=== PATIENT | female | born 1945 | race Caucasian/White ===

== ENCOUNTER 2021-05-08 11:24 | Day surgery (SDC) | payer OTHER ==
[2021-05-05 09:45] LABS: Absolute Lymphocytes (CBC) 1.1 K/uL (0.7-4.9); Hematocrit 33.9 % (36.0-45.0); Lymphocytes % 14.7 % (15.3-44.8); MPV 8.6 fL (7.6-11.3); RBC Red Blood Cell Count 4.04 M/uL (3.86-4.86)
[2021-05-05 09:52] LABS: Protime INR 1.05
[2021-05-05 09:53] LABS: BUN Blood Urea Nitrogen 15 mg/dL (7-18); Bicarbonate 31 mmol/L (21-32); Glucose Level 101 mg/dL (74-106); Potassium 3.7 mmol/L (3.5-5.1); Sodium Level 143 mmol/L (136-145)
[2021-05-08] MEDS ORDERED: NA CHLORIDE 0.9% 500 ML ONE (11:28)
[2021-05-08 11:52] VITALS: TEMP 97.1
[2021-05-08] MEDS ORDERED: VERAPAMIL HCL 10 MG/4 ML VIAL IV ONE (13:23)
[2021-05-08] MEDS ORDERED: CLOPIDOGREL 75 MG TABLET ONE (13:23)
[2021-05-08] MEDS ORDERED: MIDAZOLAM HCL 2 MG/2 ML INJ ONE (13:23)
[2021-05-08] MEDS ORDERED: HEPARIN 5000 UNIT/ML 1 ML VIAL ONE (13:23)
[2021-05-08] MEDS ORDERED: FENTANYL CITR 100 MCG/2 ML ONE (13:23)
[2021-05-08] MEDS ORDERED: TICAGRELOR 90 MG TABLET PO ONE (13:24)
[2021-05-08] MEDS ORDERED: ASPIRIN 325 MG TAB ONE (13:24)
[2021-05-08] MEDS ORDERED: ATROPINE SULF 1 MG/10 ML SYR IV ONE (13:24)
[2021-05-08] MEDS ORDERED: HEPARIN 10,000 UNIT/10 ML VIAL IV ONE (13:25)
[2021-05-08] MEDS ORDERED: HEPA 1000U/500MLS 2,000 UNIT/1,000 ML BAG IV ONE (13:37)
[2021-05-08] MEDS ORDERED: LIDOCAINE 1% 20 ML MDV ONE (13:39)
[2021-05-08] MEDS ORDERED: REGADENOSON 0.4 MG/5 ML SYR IV ONE (14:09)
[2021-05-08 15:41] VITALS: O2SAT 92
[2021-05-08 17:18] VITALS: BP 148/54
--- NOTE | 2021-05-09 01:12 | OP ---
Date of Procedure: 05/08/2021 Surgeon: ARACELI VEGAS Procedure Performed: 1.Selective coronary angiogram. 2.FFR of the mid LAD. Indication: Severe aortic valve stenosis before aortic valve replacement. Access: Right radial artery 6-Barbadian closed with TR band. Complications: None. Bleeding: Less than 10 mL. Total Sedation Time: 30 minutes. Description Of Procedure: After risks, benefits, and alternatives were explained, the patient agreed to proceed and signed informed consent. The patient was brought into the cardiac catheterization la boratory, prepped and draped in usual sterile fashion. Then, we accessed right radial artery using [employer] micropuncture kit and placed a 6-Barbadian slender sheath and took 5-Barbadian Gully 4.0 catheter into the aortic root, engaged the left main and right coronary artery, took standard views, and then gave systemic heparin to assure ACT level of 250 and took the FFR wire into the aortic root. The pre ssure was equalized and then, wire was advanced into the left main and then the LAD passing the area of stenosis. FFR was obtained, it was 0.82 and then, pulling the wire back, there was no drift. I t hen removed the catheter and the sheath, and placed TR band with good hemostasis. Findings: 1.Left main is large with some luminal irregularities. 2.LAD. Luminal irregularities in the proximal segment and then after diagonal and septal branch, th ere is a long, diffuse, heavily calcified stenosis ranging between 60% to 70% and then, there is anot her area of 70% stenosis, then luminal irregularities. An FFR was negative 0.82. 3.Left circumflex, large, dominant with mid 30% to 40%. Otherwise, luminal irregularities throughou t the vessel. 4.RCA, small, with luminal irregularities. Conclusion: Moderate to mid LAD stenosis by FFR. Plan: Proceed with TAVR as planned and have the patient on aspirin and high-dose statin. SR/MODL Voice ID: [id number] Report ID: [id number]
== END 2021-05-08 17:30 | disposition home or self-care (01) ==
LOC: CCL 11:24
PROVIDERS: ATTEND Internal Medicine
DX: I35.2 Nonrheumatic aortic (valve) stenosis with insufficiency (principal); I25.10 Atherosclerotic heart disease of native coronary artery without angina pectoris; I11.0 Hypertensive heart disease with heart failure; I50.32 Chronic diastolic (congestive) heart failure; I34.0 Nonrheumatic mitral (valve) insufficiency; I48.0 Paroxysmal atrial fibrillation; I65.23 Occlusion and stenosis of bilateral carotid arteries; I70.213 Atherosclerosis of native arteries of extremities with intermittent claudication, bilateral legs; E78.2 Mixed hyperlipidemia; J44.1 Chronic obstructive pulmonary disease with (acute) exacerbation; K21.9 Gastro-esophageal reflux disease without esophagitis; F41.1 Generalized anxiety disorder; R91.1 Solitary pulmonary nodule; Z87.891 Personal history of nicotine dependence; Z88.8 Allergy status to other drugs, medicaments and biological substances; Z20.822 Contact with and (suspected) exposure to COVID-19
CPT/HCPCS: 85025; 80048; 36415; 85610; 85347; 85730; 93454; 93571; U0002; C1893; J1644 ×2; J2250; J3010; J2785; J7040; C1769